=== PATIENT | male | born 1980 | race Caucasian/White ===

== ENCOUNTER 2016-11-30 16:48 | Emergency (ER) | payer OTHER ==
--- NOTE | 2016-11-30 18:03 | DIAGNOSTIC IMAGING REPORT ---
PROCEDURE: XR CHEST 1 VIEW INDICATION: EDEMA TECHNIQUE: Portable AP view (1745 hours). COMPARISON: None. FINDINGS: Lungs are clear. Heart and mediastinum are normal. Thorax is normal. IMPRESSION: 1. Negative chest.
--- NOTE | 2016-11-30 19:11 | DIAGNOSTIC IMAGING REPORT ---
PROCEDURE: US VENOUS - BILATERAL EXT INDICATION: Bilateral lower extremity swelling. TECHNIQUE: Color Doppler duplex imaging of the deep and superficial venous system without and with compression. COMPARISON: None. FINDINGS: There are bilateral inguinal lymph nodes: 3.2 cm on the right and 1.7 cm on the left. RIGHT LOWER EXTREMITY: Deep and superficial venous system of the right lower extremity is within normal limits. There is no evidence of deep vein thrombosis or superficial thrombophlebitis. LEFT LOWER EXTREMITY: Deep and superficial venous system of the left lower extremity is within normal limits. There is no evidence of deep vein thrombosis or superficial thrombophlebitis. IMPRESSION: 1. Negative venous ultrasound of the bilateral lower extremities.
--- NOTE | 2016-11-30 20:00 | ED CLINICAL REPORT ---
Clinical Report - Physicians/Mid Levels [facility] [address] [place] [address] 11/30/2016 16:50 Patient: JONNY RANGEL Time Seen: 17:08. Arrived- By private vehicle. Historian- patient. HISTORY OF PRESENT ILLNESS Chief Complaint: LOWER EXTREMITY SWELLING. Severity is described as being moderate. The quality is noted to be aching. This started about 10 days ago and is still present. It was gradual in onset and has been constant. Symptoms located in the area of the right leg and left leg. The patient has had redness and swelling. Patient denies an injury. Similar symptoms previously: None. REVIEW OF SYSTEMS No chills, fever, chest pain, difficulty breathing or abdominal pain. No constipation, diarrhea, nausea or vomiting. He has experienced mild night sweats. He has had a cough. The patient is a smoker. No change in baseline cough. It has been similar to previous symptoms. All systems otherwise negative, except as recorded above. PAST HISTORY Chronic back pain. ( PCP - None). Problems: no known problems. Additional Surgeries: Finger. Medications: None. Allergies: None. SOCIAL HISTORY Current every day heavy tobacco smoker (cigarette)- 1-2 packs per day. History of drug use: marijuana. No alcohol use. FAMILY HISTORY Denies family medical history. ADDITIONAL NOTES The nursing notes have been reviewed. PHYSICAL EXAM Vital Signs: 11/30/2016 17:10 BP: 136/68. HR: 90. RR: 18. O2 saturation: 100%. Temp: 98.3 F. Pain level now: 4/10. Have been reviewed. Appearance: Alert. Eyes: Pupils equal, round and reactive to light. ENT: Pharynx normal. Neck: Normal inspection. Neck supple. No meningeal signs, JVD or carotid bruit. CVS: Normal heart rate and rhythm. Heart sounds normal. Respiratory: No respiratory distress. Breath sounds normal. Abdomen: Soft and nontender. No organomegaly. Back: Normal inspection. Skin: Skin intact. Skin warm and dry. Extremities: Right leg: moderate erythema and swelling and mild tenderness. Neurovascular intact distally. Left leg: mild erythema and tenderness and moderate swelling. Neurovascular intact distally. Lower extremity signs of infection present (right inguinal lymphadenopathy noted). Neuro: No motor deficit. No sensory deficit. LABS, X-RAYS, AND EKG EKG: Normal EKG. Rate: 76. Prior EKG unavailable. The study has been independently viewed by me. Lower Extremity Sonography: IMPRESSION: 1. Negative venous ultrasound of the bilateral lower extremities. The study was interpreted by the radiologist and contemporaneously by me. Laboratory Tests: CBC w Diff: (ALICIA: 11/30/2016 17:50) ( MsgRcvd 11/30/2016 18:06) Final results Test Result Flag Units (Reference) WHITE BLOOD COUNT 12.8 H K/uL (4.5-11.5) RED BLOOD COUNT 4.86 M/uL (4.50-5.90) HEMOGLOBIN 13.9 gm/dL (13.5-17.5) HEMATOCRIT 41.8 % (41.0-53.0) MEAN CELL VOLUME 86 fL (80-100) MEAN CORPUSCULAR HGB 29 pg (26-34) MEAN CORPUSCULAR HGB CONC 33 g/dL (31-37) RED CELL DISTRIBUTION WIDTH 13.6 % (11.6-14.8) PLATELET COUNT 366 K/uL (150-400) NEUTROPHIL % 71.1 % (50-75) LYMPH % 19.8 L % (25-40) MONO % 5.8 % (3-14) EOSINOPHIL % 3.1 % (0-4) BASOPHIL % 0.2 % (0-2) PT with INR: (ALICIA: 11/30/2016 17:50) ( MsgRcvd 11/30/2016 18:21) Final results Test Result Flag Units (Reference) INR 1.0 (0.8-1.2) Low Intensity Therapy: INR 1.5-2.0 PT range 18.5-23.1Mod.Intensity Therapy: INR 2.0-3.0 PT range 23.1-31.5High Intensity Therapy: INR 2.5-3.5 PT range 27.4-35.5High Intensity Therapy 2: INR 3.0-4.0 PT range 31.5-39.3 APTT 30 SECONDS (24-34) D-DIMER QUANTITATIVE 1.28 H ug/mLFEU (0.27-0.52) The primary value of this quantitative assay relates toits negative predictive value (i.e. exclusion) of pulmonaryembolism/deep vein thrombosis/DIC.Elevated levels of d-dimer may also occur with:, age, cancer, inflammation, liver disease,post-op, infection, hematoma, coronary disease, peripheralarteriopathy, bleeding disorders and thrombolytic treatment.Results should be correlated with other clinical andradiological data.Testing Methodology: Latex Immunoassay BNP: (ALICIA: 11/30/2016 17:50) ( MdgRcvd 11/30/2016 18:28) Final results Test Result Flag Units (Reference) B-TYPE NATRIURETIC PEPTIDE 76.3 pg/ml (5-100) CMP: (ALICIA: 11/30/2016 17:50) ( MsgRcvd 11/30/2016 18:35) Final results Test Result Flag Units (Reference) GLUCOSE 100 mg/dL (70-110) BUN 8 mg/dL (7-18) CREATININE 1.0 mg/dL (0.6-1.3) Estimated GFR >60 mL/min Estimated GFR- >60 mL/min Note: Persistent reduction over 3 months in eGFR<60 mL/min/1.73 m2 defines CKD. Patients with eGFR values>=60 mL/min/1.73 m2 may also have CKD if evidence ofpersistent proteinuria. Additional information may be foundat [email or web address]. SODIUM 140 mmol/L (136-145) POTASSIUM 3.8 mmol/L (3.5-5.1) CHLORIDE 104 mmol/L (98-107) CARBON DIOXIDE 27 mmol/L (21-32) CALCIUM 8.5 mg/dL (8.5-10.1) TOTAL PROTEIN 7.1 g/dL (6.4-8.2) ALBUMIN 3.0 L g/dL (3.3-5.0) BILIRUBIN, TOTAL 0.1 mg/dL (0.0-1.0) ALKALINE PHOSPHATASE 69 U/L (46-116) AST (SGOT) 21 U/L (15-37) ALT (SGPT) 42 U/L (12-78) LIPASE 125 U/L (73-393) AMYLASE 43 U/L (25-115) TROPONIN I <0.05 L ng/mL (0.00-1.5) TROPONIN REFERENCE RANGE:<0.1 NEGATIVE0.1-1.5 INDETERMINANT>1.5 POSITIVE CPK 98 U/L (24-260) . PROGRESS AND PROCEDURES Course of Care: Patient is stable. Patient/family counseled. Old medical records ordered. Old records unavailable. Disposition: Discharged. Condition: stable. CLINICAL IMPRESSION Bilateral pedal edema secondary to hypoalbuminemia and unknown cause. Cellulitis of the right lower leg. INSTRUCTIONS Elevate affected areas above chest level. Warnings: Further evaluation is necessary. GENERAL WARNINGS: Return or contact your physician immediately if your condition worsens or changes unexpectedly, if not improving as expected, or if other problems arise. Prescription Medications: Bactrim DS 800 mg / 160 mg: take 1 tablet orally every 12 hours for 10 days. No refill. Substitution is permissible. Understanding of the discharge instructions verbalized by patient. Follow-up with: [facility], , , [address], , [place], [address] Follow up tomorrow. Call for an appointment. (Electronically signed by Josue Vo MD 11/30/2016 21:08)
--- NOTE | 2016-11-30 20:00 | ED CLINICAL REPORT ---
Clinical Report - Physicians/Mid Levels [facility] [address] [place] [address] 11/30/2016 16:50 Patient: JONNY RANGEL Time Seen: 17:08. Arrived- By private vehicle. Historian- patient. HISTORY OF PRESENT ILLNESS Chief Complaint: LOWER EXTREMITY SWELLING. Severity is described as being moderate. The quality is noted to be aching. This started about 10 days ago and is still present. It was gradual in onset and has been constant. Symptoms located in the area of the right leg and left leg. The patient has had redness and swelling. Patient denies an injury. Similar symptoms previously: None. REVIEW OF SYSTEMS No chills, fever, chest pain, difficulty breathing or abdominal pain. No constipation, diarrhea, nausea or vomiting. He has experienced mild night sweats. He has had a cough. The patient is a smoker. No change in baseline cough. It has been similar to previous symptoms. All systems otherwise negative, except as recorded above. PAST HISTORY Chronic back pain. ( PCP - None). Problems: no known problems. Additional Surgeries: Finger. Medications: None. Allergies: None. SOCIAL HISTORY Current every day heavy tobacco smoker (cigarette)- 1-2 packs per day. History of drug use: marijuana. No alcohol use. FAMILY HISTORY Denies family medical history. ADDITIONAL NOTES The nursing notes have been reviewed. PHYSICAL EXAM Vital Signs: 11/30/2016 17:10 BP: 136/68. HR: 90. RR: 18. O2 saturation: 100%. Temp: 98.3 F. Pain level now: 4/10. Have been reviewed. Appearance: Alert. Eyes: Pupils equal, round and reactive to light. ENT: Pharynx normal. Neck: Normal inspection. Neck supple. No meningeal signs, JVD or carotid bruit. CVS: Normal heart rate and rhythm. Heart sounds normal. Respiratory: No respiratory distress. Breath sounds normal. Abdomen: Soft and nontender. No organomegaly. Back: Normal inspection. Skin: Skin intact. Skin warm and dry. Extremities: Right leg: moderate erythema and swelling and mild tenderness. Neurovascular intact distally. Left leg: mild erythema and tenderness and moderate swelling. Neurovascular intact distally. Lower extremity signs of infection present (right inguinal lymphadenopathy noted). Neuro: No motor deficit. No sensory deficit. LABS, X-RAYS, AND EKG EKG: Normal EKG. Rate: 76. Prior EKG unavailable. The study has been independently viewed by me. Lower Extremity Sonography: IMPRESSION: 1. Negative venous ultrasound of the bilateral lower extremities. The study was interpreted by the radiologist and contemporaneously by me. Laboratory Tests: CBC w Diff: (ALICIA: 11/30/2016 17:50) ( MsgRcvd 11/30/2016 18:06) Final results Test Result Flag Units (Reference) WHITE BLOOD COUNT 12.8 H K/uL (4.5-11.5) RED BLOOD COUNT 4.86 M/uL (4.50-5.90) HEMOGLOBIN 13.9 gm/dL (13.5-17.5) HEMATOCRIT 41.8 % (41.0-53.0) MEAN CELL VOLUME 86 fL (80-100) MEAN CORPUSCULAR HGB 29 pg (26-34) MEAN CORPUSCULAR HGB CONC 33 g/dL (31-37) RED CELL DISTRIBUTION WIDTH 13.6 % (11.6-14.8) PLATELET COUNT 366 K/uL (150-400) NEUTROPHIL % 71.1 % (50-75) LYMPH % 19.8 L % (25-40) MONO % 5.8 % (3-14) EOSINOPHIL % 3.1 % (0-4) BASOPHIL % 0.2 % (0-2) PT with INR: (ALICIA: 11/30/2016 17:50) ( MsgRcvd 11/30/2016 18:21) Final results Test Result Flag Units (Reference) INR 1.0 (0.8-1.2) Low Intensity Therapy: INR 1.5-2.0 PT range 18.5-23.1Mod.Intensity Therapy: INR 2.0-3.0 PT range 23.1-31.5High Intensity Therapy: INR 2.5-3.5 PT range 27.4-35.5High Intensity Therapy 2: INR 3.0-4.0 PT range 31.5-39.3 APTT 30 SECONDS (24-34) D-DIMER QUANTITATIVE 1.28 H ug/mLFEU (0.27-0.52) The primary value of this quantitative assay relates toits negative predictive value (i.e. exclusion) of pulmonaryembolism/deep vein thrombosis/DIC.Elevated levels of d-dimer may also occur with:, age, cancer, inflammation, liver disease,post-op, infection, hematoma, coronary disease, peripheralarteriopathy, bleeding disorders and thrombolytic treatment.Results should be correlated with other clinical andradiological data.Testing Methodology: Latex Immunoassay BNP: (ALICIA: 11/30/2016 17:50) ( ScgRcvd 11/30/2016 18:28) Final results Test Result Flag Units (Reference) B-TYPE NATRIURETIC PEPTIDE 76.3 pg/ml (5-100) CMP: (ALICIA: 11/30/2016 17:50) ( MsgRcvd 11/30/2016 18:35) Final results Test Result Flag Units (Reference) GLUCOSE 100 mg/dL (70-110) BUN 8 mg/dL (7-18) CREATININE 1.0 mg/dL (0.6-1.3) Estimated GFR >60 mL/min Estimated GFR- >60 mL/min Note: Persistent reduction over 3 months in eGFR<60 mL/min/1.73 m2 defines CKD. Patients with eGFR values>=60 mL/min/1.73 m2 may also have CKD if evidence ofpersistent proteinuria. Additional information may be foundat [email or web address]. SODIUM 140 mmol/L (136-145) POTASSIUM 3.8 mmol/L (3.5-5.1) CHLORIDE 104 mmol/L (98-107) CARBON DIOXIDE 27 mmol/L (21-32) CALCIUM 8.5 mg/dL (8.5-10.1) TOTAL PROTEIN 7.1 g/dL (6.4-8.2) ALBUMIN 3.0 L g/dL (3.3-5.0) BILIRUBIN, TOTAL 0.1 mg/dL (0.0-1.0) ALKALINE PHOSPHATASE 69 U/L (46-116) AST (SGOT) 21 U/L (15-37) ALT (SGPT) 42 U/L (12-78) LIPASE 125 U/L (73-393) AMYLASE 43 U/L (25-115) TROPONIN I <0.05 L ng/mL (0.00-1.5) TROPONIN REFERENCE RANGE:<0.1 NEGATIVE0.1-1.5 INDETERMINANT>1.5 POSITIVE CPK 98 U/L (24-260) . PROGRESS AND PROCEDURES Course of Care: Patient is stable. Patient/family counseled. Old medical records ordered. Old records unavailable. Disposition: Discharged. Condition: stable. CLINICAL IMPRESSION Bilateral pedal edema secondary to hypoalbuminemia and unknown cause. Cellulitis of the right lower leg. INSTRUCTIONS Elevate affected areas above chest level. Warnings: Further evaluation is necessary. GENERAL WARNINGS: Return or contact your physician immediately if your condition worsens or changes unexpectedly, if not improving as expected, or if other problems arise. Prescription Medications: Bactrim DS 800 mg / 160 mg: take 1 tablet orally every 12 hours for 10 days. No refill. Substitution is permissible. Understanding of the discharge instructions verbalized by patient. Follow-up with: [facility], , , [address], , [place], [address] Follow up tomorrow. Call for an appointment. (Electronically signed by Josue Vo MD 11/30/2016 21:08)
--- NOTE | 2016-11-30 20:00 | ED ORDER SUMMARY ---
..... Patient: JONNY RANGEL OrderSheet [facility] VisitID: [id number] [address] [place] [address] 36y, M Registration Date/Time: 11/30/2016 ORDER SHEET Weight: 104.3 kg (stated) Allergies: None GENERAL ORDERS: Chest 1V Urgent (17:39 11/30/2016 Ry KINSEY) (17:59 Curry R.N.) Guest Services Coordinator (Continuous) (17:40 11/30/2016 Ry KINSEY) (17:59 Curry R.N.) CBC w Diff Urgent (17:40 11/30/2016 Ry KINSEY) (17:59 Curry R.N.) CMP Urgent (17:40 11/30/2016 Ry KINSEY) (17:59 Curry R.N.) PT with INR Urgent (17:40 11/30/2016 Ry KINSEY) (17:59 Curry R.N.) PTT Urgent (17:40 11/30/2016 Ry KINSEY) (17:59 Curry R.N.) Amylase Urgent (17:40 11/30/2016 Ry KINSEY) (17:59 Curry R.N.) Lipase Urgent (17:40 11/30/2016 Ry KINSEY) (17:59 Curry R.N.) D-Dimer Urgent (17:40 11/30/2016 Ry KINSEY) (17:59 Curry R.N.) CPK Urgent (17:40 11/30/2016 Ry KINSEY) (17:59 Curry R.N.) Troponin-I Urgent (17:40 11/30/2016 Ry KINSEY) (17:59 Curry R.N.) BNP Urgent (17:40 11/30/2016 Ry KINSEY) (17:59 Curry R.N.) Pulse oximeter (17:40 11/30/2016 Ry KINSEY) (17:59 Curry R.N.) EKG - ER Stat (17:40 11/30/2016 Ry KINSEY) (18:21 RKaruga) US Venous Bilat Urgent (18:23 11/30/2016 Ry KINSEY) (Ack 18:25 Bryan) (19:01 Umm) MEDICATION ORDERS: IV FLUIDS: IV Saline Lock (17:40 11/30/2016 Ry IKNSEY) (17:59 Curry Hardwick) ORDER SHEET NOTES: [Electronically signed by Josue Vo MD (21:08 11/30/2016)] [Electronically signed by Zoltan Vora R.N. (23:12 11/30/2016)] [Electronically locked/signed by Zoltan Vora R.N. (23:12 11/30/2016)]
--- NOTE | 2016-11-30 20:00 | ED NURSING NOTES ---
Clinical Report - Nurses [facility] [place] [address] 11/30/2016 16:50 Patient: JONNY RANGEL TRIAGE Triage time 17:10. Acuity: LEVEL 3. Chief Complaint: RIGHT LOWER EXTREMITY PAIN, SWELLING and REDNESS. LEFT LOWER EXTREMITY PAIN, SWELLING and REDNESS. Alert. No acute distress. BREA COMA SCORE: [place]ey Coma Scale: 15- eyes open spontaneously (4); best verbal response- oriented x 4 (5); best motor response- obeys commands (6). --17:15 Bibiana Truong R.N. 17:10 11/30/16. BP: 136/68. HR: 90. RR: 18. O2 saturation: 100% on room air. Temp: 98.3 F (oral). Pain level now: 10. --17:15 Bibiana Truong R.N. Weight: 104.3 kg stated. Height/Length: 69 inches Per Patient. BMI: 34. --17:12 Bibiana Truong R.N. Medications None. --17:11 Bibiana Truong R.N. Medication/allergy information source: the patient. --17:15 Bibiana Truong R.N. Allergies None. --17:11 Bibiana Truong R.N. History Arrived by private vehicle. Historian: patient. Primary physician (none). This occurred (about 1 1/2 weeks). SOCIAL HX: Heavy tobacco smoker- more than 2 packs per day. History of drug use: marijuana. No alcohol use. --17:15 Bibiana Truong R.N. PROBLEMS: no known problems. ADDITIONAL SURGERIES: Finger. --17:11 Bibiana Truong R.N. Assessment GENERAL / NEURO / PSYCH: Alert. Oriented X 4. Appears in no acute distress. Patient appears calm and cooperative. RESPIRATORY: Respirations not labored. SKIN: Skin is warm and dry. --17:15 Bibiana Truong R.N. Interventions ID band on patient. To treatment room. --17:15 Bibiana Truong R.N. PHYSICAL ASSESSMENT Ambulatory to room. GENERAL / NEURO / PSYCH: Appears in pain. EXTREMITIES: Bilateral 3+ edema of the lower extremities involving both lower legs. Extremities exhibit normal ROM. Normal gait. SKIN: Skin intact. Skin is warm and dry. --17:22 Zoltan Vora R.N. NURSING PROGRESS NOTES Patient gowned. Reassurance given. Patient identifiers checked. Call light placed in reach. Side rails up. Bed placed in lowest position. Brakes of bed on. Patient ready for evaluation- chart flagged and ED physician notified. --17:22 Zoltan Vora R.N. 17:59 11/30/2016 Site #1 started via IV in the right antecubital space with an 20g angiocath, with aseptic technique and good blood return; one attempt. Blood drawn: rainbow set. Labeled in the presence of the patient and sent to the lab. Saline lock flushed with 10 mL saline. --17:59 Zoltan Vora R.N. EKG time: (18:10). EKG was performed by a tech and shown to the ED physician. --18:24 Gustavo Lainez 19:00 11/30/16. BP: 112/60. HR: 72. RR: 16. O2 saturation: 97% on room air. Pain level now: 0/10. --19:11 Zoltan Vora R.N. DISPOSITION / DISCHARGE 20:30 11/30/16. BP: 116/74. HR: 74. RR: 18. O2 saturation: 99% on room air. Temp: 98.6 F (oral). Pain level now: 2/10. Additional comments: Bilat Calves. --22:52 Zoltan Vora R.N. Departure time: 2034. --22:52 Zoltan Vora R.N. 20:35. Condition at departure: improved. No learning barriers present. Discharge instructions provided and reviewed with the patient. Reviewed medication(s) (prescription given to pt). Reviewed referral to family practice for followup. Patient verbalized understanding. Written instructions provided in [place]. The patient was discharged by the physician. He was discharged home and unaccompanied at time of discharge. He left the Emergency Department ambulatory and via private vehicle. Patient driving. --22:54 Zoltan Vora R.N. Locked/Released at 11/30/2016 23:12 by Zoltan Vora R.N.
--- NOTE | 2016-11-30 20:00 | ED ORDER SUMMARY ---
..... Patient: JONNY RANGEL OrderSheet [facility] VisitID: [id number] [address] [place] [address] 36y, M Registration Date/Time: 11/30/2016 ORDER SHEET Weight: 104.3 kg (stated) Allergies: None GENERAL ORDERS: Chest 1V Urgent (17:39 11/30/2016 Ry KINSEY) (17:59 Curry R.N.) Reading Tutor (Continuous) (17:40 11/30/2016 Ry KINSEY) (17:59 Curry R.N.) CBC w Diff Urgent (17:40 11/30/2016 Ry KINSEY) (17:59 Curry R.N.) CMP Urgent (17:40 11/30/2016 Ry KINSEY) (17:59 Curry R.N.) PT with INR Urgent (17:40 11/30/2016 Ry KINSEY) (17:59 Curry R.N.) PTT Urgent (17:40 11/30/2016 Ry KINSEY) (17:59 Curry R.N.) Amylase Urgent (17:40 11/30/2016 Ry KINSEY) (17:59 Curry R.N.) Lipase Urgent (17:40 11/30/2016 Ry KINSEY) (17:59 Curry R.N.) D-Dimer Urgent (17:40 11/30/2016 Ry KINSEY) (17:59 Curry R.N.) CPK Urgent (17:40 11/30/2016 Ry KINSEY) (17:59 Curry R.N.) Troponin-I Urgent (17:40 11/30/2016 Ry KINSEY) (17:59 Curry R.N.) BNP Urgent (17:40 11/30/2016 Ry KINSEY) (17:59 Curry R.N.) Pulse oximeter (17:40 11/30/2016 Ry KINSEY) (17:59 Curry R.N.) EKG - ER Stat (17:40 11/30/2016 Ry KINSEY) (18:21 RKaruga) US Venous Bilat Urgent (18:23 11/30/2016 Ry KINSEY) (Ack 18:25 Bryan) (19:01 Umm) MEDICATION ORDERS: IV FLUIDS: IV Saline Lock (17:40 11/30/2016 Ry KINSEY) (17:59 Curry Hardwick) ORDER SHEET NOTES: [Electronically signed by Josue Vo MD (21:08 11/30/2016)] [Electronically signed by Zoltan Vora R.N. (23:12 11/30/2016)] [Electronically locked/signed by Zoltan Vora R.N. (23:12 11/30/2016)]
--- NOTE | 2016-11-30 23:12 | ED DISCHARGE INSTRUCTIONS ---
Patient: JONNY RANGEL General Instructions [facility] VisitID: [id number] [address] [place] [address] 36y, M Registration Date/Time: 11/30/2016 Bilateral pedal edema secondary to hypoalbuminemia and unknown cause. Cellulitis of the right lower leg. INSTRUCTIONS Elevate affected areas above chest level. Warnings: Further evaluation is necessary. GENERAL WARNINGS: Return or contact your physician immediately if your condition worsens or changes unexpectedly, if not improving as expected, or if other problems arise. Prescription Medications: Bactrim DS 800 mg / 160 mg: take 1 tablet orally every 12 hours for 10 days. No refill. Substitution is permissible. Understanding of the discharge instructions verbalized by patient. Follow-up with: [facility], , , [address], , [place], [id number] Follow up tomorrow. Call for an appointment. ADDITIONAL INFORMATION Cellulitis You have an infection of the skin known as cellulitis. This usually starts with a scrape, cut, insect bite, blister or other opening in the skin which becomes infected. This is a serious condition. It must be watched closely to be sure the infection is not spreading. With antibiotic treatment, the size of the red area will gradually shrink in size until the skin returns to normal. This will take 7-10 days. The red area should never increase in size once the antibiotic medicine has been started. Occasionally, an infection will be resistant to one antibiotic and another one will have to be used. Home Care: 1) Limit the use of the affected part, since excess movement can cause the infection to spread. 2) If the infection is on your leg, walk as little as possible during the first few days of the treatment. Keep your leg elevated while sitting. This will reduce swelling. 3) Take all of the antibiotic medicine exactly as directed until it is gone. Be careful not to miss any doses, especially during the first seven days. Follow Up with your doctor or this facility as directed. Check the infected area daily for the warning signs listed below. Get Prompt Medical Attention if any of the following occur: -- Spreading area of redness -- Increasing swelling or pain -- Appearance of pus or drainage -- Fever over 100.4 F (38.0 C) oral, or over 101.4 F (38.6 C) rectal, after two days on antibiotics Leg Swelling [Bilateral] Swelling of the feet, ankles and legs is called "Edema." It is due to excess fluid collecting in the tissues. Because of gravity, excess fluid in the body settles in the lowest part. This is why the legs and feet are most affected. Some of the causes for edema include: Disease of the heart (congestive heart failure or "CHF") Prolonged standing or sitting (with the legs in the down position) Infection of the feet or legs Venous Insufficiency (congestion of blood in the veins of the legs) Varicose veins (dilated veins of the lower leg) Garters, or clothing that constricts your legs. (These will cause venous congestion by restricting blood flow.) Some medicines (hormones such as control pills; some blood pressure medicines, such as calcium channel blockers; steroids; some antidepressants such as MAO inhibitors and tricyclics.) Menstrual periods with fluid retention Renal insufficiency (a form of kidney disease) Liver failure (Some swelling is normal, but a sudden increase in leg swelling or weight gain can be a sign of a dangerous complication of ). Medical treatment will depend on the cause of your swelling. Diuretics (water pills) may be prescribed to remove excess fluid. Home Care: Do not wear garments that constrict your legs (such as garters). Elevate your legs while lying or sitting. If infection, injury or recent surgery is the cause for your swelling, stay off your legs as much as possible until symptoms improve. If your doctor says that your leg swelling is caused by venous insufficiency or varicose veins, do not sit or insolvency consultant one place for long periods of time. Take breaks and walk about every few hours. Brisk walking is a good exercise and helps circulate the congested blood from your leg. Talk to your doctor about the use of support stockings to prevent daytime leg swelling. If your doctor says that heart disease is the cause of your leg swelling, follow a low-salt diet to prevent excess fluid retention. Follow Up with your doctor or as advised by our staff. Get Prompt Medical Attention if any of the following occur: New or worsening shortness of breath or chest pain Increasing swelling in both legs or ankles Swelling of the abdomen Redness, warmth or swelling in one leg Fever of 100.4F (38C) or higher, or as directed by your healthcare provider Yellow color to the skin or eyes Rapid, unexplained weight gain Sulfamethoxazole, Trimethoprim Oral tablet What is this medicine? SULFAMETHOXAZOLE; TRIMETHOPRIM or SMX-TMP (suhl fuh meth OK luz zohl; trye METH oh prim) is a combination of a sulfonamide antibiotic and a second antibiotic, trimethoprim. It is used to treat or prevent certain kinds of bacterial infections. It will not work for colds, flu, or other viral infections. How should I use this medicine? Take this medicine by mouth with a full glass of water. Follow the directions on the prescription label. Take your medicine at regular intervals. Do not take it more often than directed. Do not skip doses or stop your medicine early. Talk to your service desk associate regarding the use of this medicine in children. Special care may be needed. This medicine has been used in children as young as 2 months of age. What side effects may I notice from receiving this medicine? Side effects that you should report to your doctor or health rn managed care as soon as possible: allergic reactions like skin rash or hives, swelling of the face, lips, or tongue breathing problems fever or chills, sore throat irregular heartbeat, chest pain joint or muscle pain pain or difficulty passing urine red pinpoint spots on skin redness, blistering, peeling or loosening of the skin, including inside the mouth unusual bleeding or bruising unusually weak or tired yellowing of the eyes or skin Side effects that usually do not require medical attention (report to your doctor or health rn managed care if they continue or are bothersome): diarrhea dizziness headache loss of appetite nausea, vomiting nervousness What may interact with this medicine? Do not take this medicine with any of the following medications: aminobenzoate potassium dofetilide metronidazole This medicine may also interact with the following medications: ALBINO inhibitors like benazepril, enalapril, lisinopril, and ramipril cyclosporine digoxin diuretics indomethacin medicines for diabetes methenamine methotrexate phenytoin potassium supplements pyrimethamine sulfinpyrazone tricyclic antidepressants warfarin What if I miss a dose? If you miss a dose, take it as soon as you can. If it is almost time for your next dose, take only that dose. Do not take double or extra doses. Where should I keep my medicine? Keep out of the reach of children. Store at room temperature between 20 to 25 degrees C (68 to 77 degrees F). Protect from light. Throw away any unused medicine after the expiration date. What should I tell my health care provider before I take this medicine? They need to know if you have any of these conditions: anemia asthma being treated with anticonvulsants if you frequently drink alcohol containing drinks kidney disease liver disease low level of folic acid or [id number] dehydrogenase poor nutrition or malabsorption porphyria severe allergies thyroid disorder an unusual or allergic reaction to sulfamethoxazole, trimethoprim, sulfa drugs, other medicines, foods, dyes, or preservatives or trying to get breast-feeding What should I watch for while using this medicine? Tell your doctor or health rn managed care if your symptoms do not improve. Drink several glasses of water a day to reduce the risk of kidney problems. Do not treat diarrhea with over the counter products. Contact your doctor if you have diarrhea that lasts more than 2 days or if it is severe and watery. This medicine can make you more sensitive to the sun. Keep out of the sun. If you cannot avoid being in the sun, wear protective clothing and use a sunscreen. Do not use sun lamps or tanning beds/booths. You have been given the following additional information: Cellulitis Peripheral Edema, Bilateral Sulfamethoxazole, Trimethoprim Oral tablet (Electronically signed by Josue Vo MD 11/30/2016 21:08)
--- NOTE | 2016-11-30 23:12 | ED MED RECONCILIATION SUMMARY ---
Patient: JONNY RANGEL Medication Reconciliation Report [facility] VisitID: [id number] [address] [place] [address] 36y, M Registration Date/Time: 11/30/2016 Weight: 104.3 kg Height/Length: 69 in. BMI: 34.0 ALLERGIES: None The patient's Home Medications are listed below: NONE. The source(s) of the original Home Medication information: patient The following Medications were given to the patient in the Emergency Department: None. The following Medications were prescribed to the patient: Bactrim DS 800 mg / 160 mg: take 1 tablet orally every 12 hours for 10 days. No refill. Substitution is permissible. -- Josue Vo MD
--- NOTE | 2016-11-30 23:12 | ED MAR SUMMARY ---
..... Medication Administration Record Merged With [facility] [address], [place] [id number] Patient: JONNY RANGEL Visit ID: [id number] 36y, M Weight: 104.3 kg Height/Length: 69 in BMI: 34 ALLERGIES: None
--- NOTE | 2016-11-30 23:12 | ED MED RECONCILIATION SUMMARY ---
Patient: JONNY RANGEL Medication Reconciliation Report [facility] VisitID: [id number] [address] [place] [address] 36y, M Registration Date/Time: 11/30/2016 Weight: 104.3 kg Height/Length: 69 in. BMI: 34.0 ALLERGIES: None The patient's Home Medications are listed below: NONE. The source(s) of the original Home Medication information: patient The following Medications were given to the patient in the Emergency Department: None. The following Medications were prescribed to the patient: Bactrim DS 800 mg / 160 mg: take 1 tablet orally every 12 hours for 10 days. No refill. Substitution is permissible. -- Josue Vo MD
--- NOTE | 2016-11-30 23:12 | ED DISCHARGE INSTRUCTIONS ---
Patient: JONNY RANGEL General Instructions [facility] VisitID: [id number] [address] [place] [address] 36y, M Registration Date/Time: 11/30/2016 Bilateral pedal edema secondary to hypoalbuminemia and unknown cause. Cellulitis of the right lower leg. INSTRUCTIONS Elevate affected areas above chest level. Warnings: Further evaluation is necessary. GENERAL WARNINGS: Return or contact your physician immediately if your condition worsens or changes unexpectedly, if not improving as expected, or if other problems arise. Prescription Medications: Bactrim DS 800 mg / 160 mg: take 1 tablet orally every 12 hours for 10 days. No refill. Substitution is permissible. Understanding of the discharge instructions verbalized by patient. Follow-up with: [facility], , , [address], , [place], [address] Follow up tomorrow. Call for an appointment. ADDITIONAL INFORMATION Cellulitis You have an infection of the skin known as cellulitis. This usually starts with a scrape, cut, insect bite, blister or other opening in the skin which becomes infected. This is a serious condition. It must be watched closely to be sure the infection is not spreading. With antibiotic treatment, the size of the red area will gradually shrink in size until the skin returns to normal. This will take 7-10 days. The red area should never increase in size once the antibiotic medicine has been started. Occasionally, an infection will be resistant to one antibiotic and another one will have to be used. Home Care: 1) Limit the use of the affected part, since excess movement can cause the infection to spread. 2) If the infection is on your leg, walk as little as possible during the first few days of the treatment. Keep your leg elevated while sitting. This will reduce swelling. 3) Take all of the antibiotic medicine exactly as directed until it is gone. Be careful not to miss any doses, especially during the first seven days. Follow Up with your doctor or this facility as directed. Check the infected area daily for the warning signs listed below. Get Prompt Medical Attention if any of the following occur: -- Spreading area of redness -- Increasing swelling or pain -- Appearance of pus or drainage -- Fever over 100.4 F (38.0 C) oral, or over 101.4 F (38.6 C) rectal, after two days on antibiotics Leg Swelling [Bilateral] Swelling of the feet, ankles and legs is called "Edema." It is due to excess fluid collecting in the tissues. Because of gravity, excess fluid in the body settles in the lowest part. This is why the legs and feet are most affected. Some of the causes for edema include: Disease of the heart (congestive heart failure or "CHF") Prolonged standing or sitting (with the legs in the down position) Infection of the feet or legs Venous Insufficiency (congestion of blood in the veins of the legs) Varicose veins (dilated veins of the lower leg) Garters, or clothing that constricts your legs. (These will cause venous congestion by restricting blood flow.) Some medicines (hormones such as control pills; some blood pressure medicines, such as calcium channel blockers; steroids; some antidepressants such as MAO inhibitors and tricyclics.) Menstrual periods with fluid retention Renal insufficiency (a form of kidney disease) Liver failure (Some swelling is normal, but a sudden increase in leg swelling or weight gain can be a sign of a dangerous complication of ). Medical treatment will depend on the cause of your swelling. Diuretics (water pills) may be prescribed to remove excess fluid. Home Care: Do not wear garments that constrict your legs (such as garters). Elevate your legs while lying or sitting. If infection, injury or recent surgery is the cause for your swelling, stay off your legs as much as possible until symptoms improve. If your doctor says that your leg swelling is caused by venous insufficiency or varicose veins, do not sit or clothing room supervisor one place for long periods of time. Take breaks and walk about every few hours. Brisk walking is a good exercise and helps circulate the congested blood from your leg. Talk to your doctor about the use of support stockings to prevent daytime leg swelling. If your doctor says that heart disease is the cause of your leg swelling, follow a low-salt diet to prevent excess fluid retention. Follow Up with your doctor or as advised by our staff. Get Prompt Medical Attention if any of the following occur: New or worsening shortness of breath or chest pain Increasing swelling in both legs or ankles Swelling of the abdomen Redness, warmth or swelling in one leg Fever of 100.4F (38C) or higher, or as directed by your healthcare provider Yellow color to the skin or eyes Rapid, unexplained weight gain Sulfamethoxazole, Trimethoprim Oral tablet What is this medicine? SULFAMETHOXAZOLE; TRIMETHOPRIM or SMX-TMP (suhl fuh meth OK luz zohl; trye METH oh prim) is a combination of a sulfonamide antibiotic and a second antibiotic, trimethoprim. It is used to treat or prevent certain kinds of bacterial infections. It will not work for colds, flu, or other viral infections. How should I use this medicine? Take this medicine by mouth with a full glass of water. Follow the directions on the prescription label. Take your medicine at regular intervals. Do not take it more often than directed. Do not skip doses or stop your medicine early. Talk to your ice cream dispenser regarding the use of this medicine in children. Special care may be needed. This medicine has been used in children as young as 2 months of age. What side effects may I notice from receiving this medicine? Side effects that you should report to your doctor or health rental boats caretaker as soon as possible: allergic reactions like skin rash or hives, swelling of the face, lips, or tongue breathing problems fever or chills, sore throat irregular heartbeat, chest pain joint or muscle pain pain or difficulty passing urine red pinpoint spots on skin redness, blistering, peeling or loosening of the skin, including inside the mouth unusual bleeding or bruising unusually weak or tired yellowing of the eyes or skin Side effects that usually do not require medical attention (report to your doctor or health rental boats caretaker if they continue or are bothersome): diarrhea dizziness headache loss of appetite nausea, vomiting nervousness What may interact with this medicine? Do not take this medicine with any of the following medications: aminobenzoate potassium dofetilide metronidazole This medicine may also interact with the following medications: ALBINO inhibitors like benazepril, enalapril, lisinopril, and ramipril cyclosporine digoxin diuretics indomethacin medicines for diabetes methenamine methotrexate phenytoin potassium supplements pyrimethamine sulfinpyrazone tricyclic antidepressants warfarin What if I miss a dose? If you miss a dose, take it as soon as you can. If it is almost time for your next dose, take only that dose. Do not take double or extra doses. Where should I keep my medicine? Keep out of the reach of children. Store at room temperature between 20 to 25 degrees C (68 to 77 degrees F). Protect from light. Throw away any unused medicine after the expiration date. What should I tell my health care provider before I take this medicine? They need to know if you have any of these conditions: anemia asthma being treated with anticonvulsants if you frequently drink alcohol containing drinks kidney disease liver disease low level of folic acid or [id number] dehydrogenase poor nutrition or malabsorption porphyria severe allergies thyroid disorder an unusual or allergic reaction to sulfamethoxazole, trimethoprim, sulfa drugs, other medicines, foods, dyes, or preservatives or trying to get breast-feeding What should I watch for while using this medicine? Tell your doctor or health rental boats caretaker if your symptoms do not improve. Drink several glasses of water a day to reduce the risk of kidney problems. Do not treat diarrhea with over the counter products. Contact your doctor if you have diarrhea that lasts more than 2 days or if it is severe and watery. This medicine can make you more sensitive to the sun. Keep out of the sun. If you cannot avoid being in the sun, wear protective clothing and use a sunscreen. Do not use sun lamps or tanning beds/booths. You have been given the following additional information: Cellulitis Peripheral Edema, Bilateral Sulfamethoxazole, Trimethoprim Oral tablet (Electronically signed by Josue Vo MD 11/30/2016 21:08)
--- NOTE | 2016-11-30 23:12 | ED MAR SUMMARY ---
..... Medication Administration Record [facility] [address] [place], [place] [id number] Patient: JONNY RANGEL Visit ID: [id number] 36y, M Weight: 104.3 kg Height/Length: 69 in BMI: 34 ALLERGIES: None
== END 2016-11-30 20:35 | disposition home or self-care (01) ==
LOC: ED SRH 16:48
DX: E88.09 Other disorders of plasma-protein metabolism, not elsewhere classified (principal); R60.0 Localized edema; L03.115 Cellulitis of right lower limb
CPT/HCPCS: 90100; 90616; 91320; 91556; 92235; 92530; 92610; 94001; 94060; 95059